=== PATIENT | male | born 1945 | race Caucasian/White ===

== ENCOUNTER 2023-11-30 08:58 | Inpatient (IN) | payer MEDICARE, SELFPAY ==
[2023-11-30] VITALS (31 sets, daily range): BP systolic 97–134; BP diastolic 62–82; PULSE 72–90; RESP 9–18; TEMP 36.1–36.5; O2SAT 96–100; BMI 18.4
--- NOTE | ~2023-11-30 | XR_ITS ---
XR chest 1V portable 11/30/2023 09:58 Indication: Altered mental status Procedure: AP portable chest Comparison: No prior studies for comparison. Findings: Cardiomegaly. Pacemaker leads in expected position. There is diffuse left-sided airspace di sease, compatible with pneumonia. Small left effusion. No pneumothorax. Impression: 1: Extensive left-sided airspace disease, compatible with pneumonia. Reviewed, dictated and finalized at location A. LY MEMBER CARETAKER Impression: 1: Extensive left-sided airspace disease, compatible with pneumonia.
--- NOTE | ~2023-11-30 | US_ITS ---
US right upper quadrant INDICATION: Elevated liver enzymes PROCEDURE: Realtime right upper abdominal ultrasound. COMPARISON: No prior studies for comparison. FINDINGS: The pancreas is normal without focal mass or pancreatic ductal dilation. Liver echotexture is normal without focal mass or intrahepatic biliary dilatation. There is normal directional flow i n the portal vein. The gallbladder is normal without stones, gallbladder wall thickening or pericholecystic fluid. Comm on bile duct measures 3 mm. No sonographic Salas's sign. There is ascites in the right upper abdome n. IMPRESSION: 1: Ascites. Reviewed, dictated and finalized at location A. REPAIRER CUSTOM IMPRESSION: 1: Ascites.
--- NOTE | ~2023-11-30 | CT_ITS ---
EXAMINATION: CT chest abdomen pelvis wo con DATE: 12/01/2023 14:28 INDICATION: Pneumonia/ascites . TECHNIQUE: Computed tomography (CT) of the chest, abdomen, and pelvis was performed with 100 mL Omnip aque-350 intravenous contrast. Automated exposure control and iterative reconstruction technique were employed. The dose-length product was 668.69 mGy-cm. COMPARISON: Right upper quadrant ultrasound, same date; x-ray chest 11/30/2023. FINDINGS: Examination is limited by nonstandard oblique positioning on the scanner table and arm down positioni ng. CHEST: Thoracic aorta: No significant dilation. Mild calcification. Low-density blood pool. Lung parenchyma and airways: Minimal tree-in-bud opacities and septal lines in the right lung. More p rominent septal thickening in the left lung with geographic areas of ground glass opacity and segment al dependent consolidation. Thoracic inlet, axillae and chest wall: No thyroid or soft tissue mass. No axillary lymphadenopathy. Moderate body wall edema. Left chest pacer with leads in good position. Mediastinum: No mass or lymphadenopathy. Heart and pericardium: Normal heart size. No pericardial effusion. Coronary artery calcifications: Heavy. Pleura: Small bilateral simple pleural fluid collections. Thoracic bones: Mild height loss at T8. Mild burst fracture at T11, no retropulsion. Mild anterior we dge deformity at T12. ABDOMEN/PELVIS: Liver: Normal. Biliary/Gallbladder: Gallbladder is contracted. No bile duct dilation. Pancreas: No mass or duct dilation. Spleen: Normal. Adrenals:No mass. Kidneys: No suspicious mass, obstructing stone, or hydronephrosis. GI tract: No small bowel dilation. Rectum is dilated to 8.1 cm by partially formed stool. The appendi x is not confidently visualized. Mesentery/Peritoneum: Moderate diffuse mesenteric edema. Small volume perihepatic fluid. No definite mesenteric mass. No free air. Retroperitoneum: No mass Pelvis: Partially distended urinary bladder with moderate wall thickening. Soft Tissues: Moderate diffuse subcutaneous edema. Abdominopelvic bones: No definite acute osseous finding in the abdomen/pelvis. Superior endplate def ormity. Mild anterior wedge deformity at L1 and L2. Partially visualized left proximal femoral hardwa re. IMPRESSION: Pulmonary opacities may represent atypical/viral infection in the left lung overlying mild edema, gerson juana asymmetric pulmonary edema. Small bilateral pleural effusions. Decreased blood pool density as can be seen with anemia. Small volume perihepatic fluid. Moderate diffuse subcutaneous and mesenteric edema. Possible fecal impaction. Cystitis versus bladder wall thickening from incomplete distention. Mild height loss at T8. Mild burst fracture without retropulsion at T11. Multilevel mild anterior wed ge deformities at the thoracolumbar junction. These changes are presumably chronic, unless accompanie d by acute pain/tenderness. Reviewed, dictated and finalized at location K. CAL I D SALES IMPRESSION: Pulmonary opacities may represent atypical/viral infection in the left lung ove rlying mild edema, versus asymmetric pulmonary edema. Small bilateral pleural effusions. Decreased blood pool density as can be seen with anemia. Small volume perihepatic fluid. Moderate diffuse subcutaneous and mesenteric ed margarita. Possible fecal impaction. Cystitis versus bladder wall thickening from incomplete distention. Mild height loss at T8. Mild burst fracture without retropulsion at T11. Multil evel mild anterior wedge deformities at the thoracolumbar junction. These salas es are presumably chronic, unless accompanied by acute pain/tenderness.
--- NOTE | ~2023-11-30 | CT_ITS ---
EXAMINATION: CT brain wo con DATE: 11/30/2023 09:56 INDICATION: Altered mental status TECHNIQUE: Computed tomography (CT) of the head was performed without intravenous contrast. The dose- length product was 681.00 mGy-cm. Automated exposure control and iterative reconstruction technique w ere employed. COMPARISON: None FINDINGS: Generalized atrophy. There are scattered mild periventricular and subcortical white matter changes, most likely related to small vessel ischemic disease (microangiopathy). There is intracrania l atherosclerosis. No depressed skull fractures. No acute intracranial hemorrhage, infarction, mass o r mass effect. Paranasal sinuses and mastoids are pneumatized. IMPRESSION: 1. No acute intracranial abnormality. Reviewed, dictated and finalized at location A. UTER TERMINAL OPERATOR
--- NOTE | 2023-11-30 09:08 | ECG_ITS ---
Measurements Intervals [place] Rate: 90 P: -79 MA: 227 QRS: -76 QRSD: 177 T: 94 QT: 441 QTc: 542 Interpretive Statements ELECTRONIC ATRIAL PACEMAKER ELECTRONIC VENTRICULAR PACEMAKER NO FURTHER INTERPRETATION POSSIBLE NO PREVIOUS ECG AVAILABLE FOR COMPARISON Electronically Signed On 11-30-2023 14:44:52 WIRE SAW OPERATOR by Jae Castillo M.D.
--- NOTE | 2023-11-30 09:30 | ED.AMS ---
HPI - Altered Mental Status General Chief Complaint: Altered Mental Status <Marcela Wells PA-C - Last Filed: 11/30/23 12:43> Stated Complaint: responsive to pain only <Marcela Wells PA-C - Last Filed: 11/30/23 12:43> Time Seen by Provider: 11/30/23 09:06 <Marcela Wells PA-C - Last Filed: 11/30/23 12:43> Source: EMS <Marcela Wells PA-C - Last Filed: 11/30/23 12:43> Mode of arrival: EMS <Marcela Wells PA-C - Last Filed: 11/30/23 12:43> Limitations: altered mental status <Marcela Wells PA-C - Last Filed: 11/30/23 12:43> History of Present Illness HPI narrative: This is a 78-year-old male that presents to the emergency department for altered mental status. Reportedly patient was woke up around 7 this morning and was found to be altered. His blood sugar was in the 20s. They did give him glucagon and it corrected patient his hypoglycemia, but patient continues to be altered. <Marcela Wells PA-C - Last Filed: 11/30/23 12:43> Related Data Allergies/Adverse Reactions: Allergies Allergy/AdvReac Type Severity Reaction Status Date / Time alendronate sodium Allergy Unknown Verified 11/30/23 10:20 [From Fosamax] gluten Allergy Unknown Verified 11/30/23 10:20 <Marcela Wells PA-C - Last Filed: 11/30/23 12:43> Review of Systems Review of Systems: ROS unobtainable: Yes unobtainable due to mental status <Marcela Wells PA-C - Last Filed: 11/30/23 12:43> [facility] Past Medical History Medical History: Medical History (Updated 11/30/23 @ 12:40 by Marcela Wells PA-C) History of chronic kidney disease History of diabetes mellitus History of gastroesophageal reflux (GERD) History of hypertension History of hypothyroidism History of pacemaker History of peripheral vascular disease History of poliomyelitis <Marcela Wells PA-C - Last Filed: 11/30/23 12:43> Social History Social History: Social History (Updated 11/30/23 @ 09:42 by Marcela Wells PA-C) Living arrangements: [facility] <Marcela Wells PA-C - Last Filed: 11/30/23 12:43> Exam Narrative: GENERAL: Lethargic, thin HEAD: Normocephalic, atraumatic. EYES: PERRLA ENT: Nares clear, no rhinorrhea or epistaxis. Mucous membranes moist. Oropharynx without tonsillar hypertrophy exudate or other lesions. Bilateral TMs pearly angel non-bulging NECK: Supple. No adenopathy or masses. CHEST: Clear to auscultation. No respiratory distress. No wheezes rales or rhonchi HEART: Regular rate and rhythm. No murmur heard. Normal peripheral pulses. ABDOMEN: Soft, nontender, nondistended, normal active bowel sounds. BACK: Superficial pressure ulcer to the sacrum with mild surrounding redness EXTREMITIES: Normal range of motion. No edema. Ulcerating wound present to the right heel with mild surrounding redness SKIN: Warm, dry, no rash. NEURO: Lethargic, does not follow commands <Marcela Wells PA-C - Last Filed: 11/30/23 12:43> Course Course Emergency Course: Patient is now more alert. Was able to tell us his name and date of <Marcela Wells PA-C - Last Filed: 11/30/23 12:43> INTERACTIVE WEB DEVELOPER/PA Physician Supervision For this patient encounter, I reviewed the INTERACTIVE WEB DEVELOPER or PA documentation, treatment plan, and medical decision making; and I had [id number] time with this patient. <Kenton Damon MD - Last Filed: 11/30/23 19:05> Consultations Consultation #1: Spoke with hospitalist about patient and workup who accepts admission <Marcela Wells PA-C - Last Filed: 11/30/23 12:43> Date: 11/30/23 <Marcela Wells PA-C - Last Filed: 11/30/23 12:43> Vital Signs Vital signs: Vital Signs Temperature 97.7 F 11/30/23 09:10 Pulse Rate 87 11/30/23 09:10 Respiratory Rate 16 11/30/23 09:10 Blood Pressure 128/82 11/30/23 09:10 Pulse Oximetry 100 11/30/23 09:10 Temperature 97.7 F 11/30/23 09:10 Pulse Rate 75 11/30/23 14:46 Respiratory Rate 15
[2023-11-30 09:46] LABS: Basophils Percent Auto 0.4 % (0.2-1.2); Eosinophils Percent Auto 0.3 % (0-4.4); Hematocrit 33.9 % (42.0-52.0); Hemoglobin 11.3 g/dL (14.0-18.0); Immature Granulocyte Absolute 0.04 K/mm3 (0.00-0.031); Immature Granulocyte Percent A 0.4 % (0-0.5); Lymphocytes Absolute Auto 0.75 K/mm3 (0.9-3.2); Lymphocytes Percent Auto 8.4 % (18.3-44.2); Mean Corpuscular HGB Conc 33.3 g/dl (32-36); Mean Corpuscular Hemoglobin 33.9 pg (26-34); Mean Corpuscular Volume 101.8 fl (80-100); Mean Platelet Volume 9.9 fl (7.4-10.4); Monocytes Absolute Auto 0.6 K/mm3 (0.1-0.6); Neutrophils Absolute Auto 7.5 K/mm3 (1.3-6.7); Neutrophils Percent Auto 83.5 % (45.5-73.1); Platelet Count Result 185 k/mm3 (150-375); Red Blood Count 3.33 M/mm3 (4.6-6.20); Red Cell Distribution Width 15.4 % (11.5-14.5)
[2023-11-30 09:59] LABS: Alanine Aminotransferase 90 U/L (6-50); Albumin Level 3.3 g/dL (3.5-5.1); Alkaline Phosphatase 150 U/L (38-126); Anion Gap 5 mmol/L (8-16); Aspartate Amino Transferase 108 U/L (17-59); Bilirubin,Total 0.9 mg/dL (0.2-1.3); Blood Urea Nitrogen 35 mg/dL (9-20); Calcium 8.4 mg/dL (8.4-10.2); Carbon Dioxide 31 mmol/L (22-30); Chloride 94 mmol/L (98-107); Estimated CRCL calculation 52 ml/min; Estimated Glomerular Filt Rate > 60; Glucose 114 mg/dL (65-110); Potassium 3.9 mmol/L (3.4-5.0); Sodium 130 mmol/L (137-145)
[2023-11-30 11:00] LABS: Lactic Acid Reflex 1.5 mmol/L (0.7-2.0)
[2023-11-30 11:01] LABS: Lipase 34 U/L (23-300)
[2023-11-30 11:05] LABS: Appearance Urine Clear (Clear); Bilirubin Urine Negative (Negative); Blood Urine Negative (Negative); Color Urine Yellow (Yellow); Glucose Urine UA Negative (Negative); Ketones Urine Negative (Negative); Leukocyte Esterase Ur Negative LEU/UL (Negative); Nitrate Urine Negative (Negative); Protein Urine Negative (Negative); Specific Grav Ur 1.016 (1.001-1.035); pH Urine 7.5 (5.0-9.0)
[2023-11-30 11:10] LABS: INR 1.3; Partial Thromboplastin Time 35.4 SECONDS (22.3-36.8); Prothrombin Time 16.6 Seconds (11.1-14.7)
[2023-11-30 11:15] LABS: Add Urine Microscopic? NO
[2023-11-30 11:36] LABS: Influenza A QL RT-PCR Negative (Negative); Influenza B QL RT-PCR Negative (Negative); RSV RNA, RT-PCR Negative (Negative); SARS-CoV-2 RNA PCR Negative (Negative)
[2023-11-30] MEDS: SODIUM CHLORIDE 0.9% IV 500 ML 999 ML IV CONT (11:52)
[2023-11-30 12:03] LABS: Glucose Point of Care 86 mg/dl (65-105)
[2023-11-30] MEDS: AZITHROMYCIN 500 MG/NS 250 ML 500 MG/250 ML BAG 250 MG IVPB (12:16)
[2023-11-30 12:53] LABS: Glucose Point of Care 73 mg/dl (65-105)
[2023-11-30] MEDS: DEXTROSE 50% 25 GM/50 ML SYRINGE IV PUSH (13:58)
[2023-11-30 14:04] LABS: Glucose Point of Care 58 mg/dl (65-105)
[2023-11-30 14:28] LABS: Glucose Point of Care 122 mg/dl (65-105)
--- NOTE | 2023-11-30 15:03 | PM.IMHP ---
H&P: HPI History of Present Illness Date/Time: 11/30/23 15:03 Chief Complaint: Altered mental status Narrative: This is a 78-year-old male that presents to the emergency department for altered mental status.? Reportedly patient was woke up around 7 this morning and was found to be altered.? His blood sugar was in the 20s.? They did give him glucagon and it corrected patient his hypoglycemia, but patient continues to be altered. And was sent to the ER for evaluation. Blood sugar was elevated when he reached the ER. She was initially only responsive to painful stimuli however discontinued improved throughout the ER stay. CT head was negative for any acute findings UA without any evidence of infection. No leukocytosis. Mildly anemic with hemoglobin of 11.3. Chest x-ray showed left-sided pneumonia. IV antibiotic has been started. Admitted for further treatment. Review of Systems Review of Systems: - CONSTITUTIONAL: Denies weight loss, fever and chills. - HEENT: Denies changes in vision and hearing - RESPIRATORY: Denies SOB and cough. - CV: Denies palpitations and CP. - GI: Denies abdominal pain, nausea, vomiting and diarrhea. - : Denies dysuria and urinary frequency. - MSK: Denies myalgia and joint pain. - SKIN: Denies rash and pruritus. - NEUROLOGICAL: Denies headache and syncope. - PSYCHIATRIC: Denies recent changes in mood. Denies anxiety and depression. [facility] Past Medical History Medical History (Updated 11/30/23 @ 12:40 by Marcela Wells PA-C) History of chronic kidney disease History of diabetes mellitus History of gastroesophageal reflux (GERD) History of hypertension History of hypothyroidism History of pacemaker History of peripheral vascular disease History of poliomyelitis Social History Social History (Updated 11/30/23 @ 09:42 by Marcela Wells PA-C) Living arrangements: retirement Meds Home Medications and Allergies Allergies Allergy/AdvReac Type Severity Reaction Status Date / Time alendronate sodium Allergy Unknown Verified 11/30/23 10:20 [From Fosamax] gluten Allergy Unknown Verified 11/30/23 10:20 Vital Signs Vital Signs - 24 hr 11/30/23 09:10 Temperature 97.7 F Pulse Rate 87 Respiratory Rate 16 Blood Pressure 128/82 Pulse Oximetry 100 Exam Narrative: GENERAL: Tired looking, thin built, fused follows commands HEAD: Normocephalic, atraumatic. EYES: PERRLA ENT: Nares clear, no rhinorrhea or epistaxis. Mucous membranes moist. NECK: Supple. No adenopathy or masses. CHEST: Clear to auscultation. No respiratory distress. No wheezes rales or rhonchi HEART: Regular rate and rhythm. No murmur heard. Normal peripheral pulses. ABDOMEN: Soft, nontender, nondistended, normal active bowel sounds. BACK: Superficial pressure ulcer to the sacrum with mild surrounding redness EXTREMITIES: Normal range of motion. No edema. Ulcerating wound present to the right heel with mild surrounding redness SKIN: Warm, dry, no rash. NEURO: Tired looking awake and following commands oriented to self but not to time or place H&P: Results Labs Labs: Short CBC 11/30/23 Range/Units 09:34 WBC 9.0 (4.5-10.0) K/mm3 Hgb 11.3 L (14.0-18.0) g/dL Hct 33.9 L (42.0-52.0) % Plt Count 185 (150-375) k/mm3 BMP 11/30/23 09:34 Sodium 130 L Potassium 3.9 Chloride 94 L Carbon Dioxide 31 H BUN 35 H Creatinine 1.00 Glucose 114 H Calcium 8.4 Liver Function 11/30/23 Range/Units 09:34 Total Bilirubin 0.9 (0.2-1.3) mg/dL AST 108 H (17-59) U/L ALT 90 H (6-50) U/L Alkaline Phosphatase 150 H (38-126) U/L Albumin 3.3 L (3.5-5.1) g/dL Urine 11/30/23 Range/Units 10:38 Urine Color Yellow (Yellow) Urine Appearance Clear (Clear) Urine pH 7.5 (5.0-9.0) Ur Specific [place] 1.016 (1.001-1.035) Urine Protein Negative (Negative) mg/dL Urine Glucose (UA) Negative (Negative) mg/dL [place]
[2023-11-30 16:08] LABS: Glucose Point of Care 73 mg/dl (65-105)
[2023-11-30] MEDS: DEXTROSE 5% 1,000 ML 1,000 ML 100 ML IVPB (16:13)
[2023-11-30 17:13] LABS: Glucose Point of Care 87 mg/dl (65-105)
[2023-11-30 17:35] LABS: Hemoglobin A1C 8.5 % (<5.7)
[2023-11-30 18:06] LABS: Hepatitis B Surface Antigen Negative (Negative)
[2023-11-30 18:12] LABS: HAV RESULT Negative (Negative); Hepatitis B Core IgM Result Negative (Negative)
[2023-11-30 18:24] LABS: Hepatitis C Virus Antibody Negative (Negative)
--- NOTE | 2023-11-30 19:29 | PC.NURSE ---
Report received from AV Braga. Assumed care of patient at this time.
[2023-11-30 19:40] LABS: Glucose Point of Care 91 mg/dl (65-105)
[2023-11-30 20:05] LABS: Glucose Point of Care 114 mg/dl (65-105)
[2023-11-30 21:25] LABS: Glucose Point of Care 108 mg/dl (65-105)
--- NOTE | 2023-11-30 22:14 | ADMGEN ---
This patient, Sukhjinder Hinton, was admitted to IMU Room 202-01. Patient/family oriented to hospital policies and general routines including ID bracelet, bed and alarms, visiting hours, pain management, procedures, bathroom and other care routines, personal items, smoking policy, room service/diet, and visiting hours. Information on how to activate the Rapid Response Team has been discussed. Patient/Family are encouraged to report perceived risks to care and to ask questions if they do not understand what they are told or what they should do.
[2023-11-30 22:18] LABS: Glucose Point of Care 107 mg/dl (65-105)
[2023-11-30] MEDS: SODIUM CHLORIDE 0.9% IV 1,000 ML 100 ML IV CONT (23:59)
[2023-12-01] VITALS (14 sets, daily range): BP systolic 85–136; BP diastolic 38–68; PULSE 70–81; RESP 16–22; TEMP 36.2–36.7; O2SAT 95–100
[2023-12-01 00:09] LABS: Glucose Point of Care 140 mg/dl (65-105)
[2023-12-01 04:26] LABS: Basophils Percent Auto 0.6 % (0.2-1.2); Eosinophils Percent Auto 0.6 % (0-4.4); Hematocrit 32.1 % (42.0-52.0); Hemoglobin 10.4 g/dL (14.0-18.0); Immature Granulocyte Absolute 0.02 K/mm3 (0.00-0.031); Immature Granulocyte Percent A 0.4 % (0-0.5); Lymphocytes Absolute Auto 0.94 K/mm3 (0.9-3.2); Lymphocytes Percent Auto 17.5 % (18.3-44.2); Mean Corpuscular HGB Conc 32.4 g/dl (32-36); Mean Corpuscular Hemoglobin 32.8 pg (26-34); Mean Corpuscular Volume 101.3 fl (80-100); Mean Platelet Volume 10.3 fl (7.4-10.4); Monocytes Absolute Auto 0.5 K/mm3 (0.1-0.6); Monocytes Percent Auto 8.4 % (2.6-8.5); Neutrophils Absolute Auto 3.9 K/mm3 (1.3-6.7); Neutrophils Percent Auto 72.5 % (45.5-73.1); Platelet Count Result 174 k/mm3 (150-375); Red Blood Count 3.17 M/mm3 (4.6-6.20); Red Cell Distribution Width 15.3 % (11.5-14.5); White Blood Count 5.4 K/mm3 (4.5-10.0)
[2023-12-01 04:51] LABS: Alanine Aminotransferase 76 U/L (6-50); Albumin Level 3.1 g/dL (3.5-5.1); Alkaline Phosphatase 138 U/L (38-126); Anion Gap 1 mmol/L (8-16); Aspartate Amino Transferase 79 U/L (17-59); Bilirubin,Total 0.9 mg/dL (0.2-1.3); Blood Urea Nitrogen 26 mg/dL (9-20); Calcium 8.2 mg/dL (8.4-10.2); Carbon Dioxide 31 mmol/L (22-30); Chloride 97 mmol/L (98-107); Estimated CRCL calculation 45 ml/min; Estimated Glomerular Filt Rate > 60; Glucose 92 mg/dL (65-110); Potassium 3.8 mmol/L (3.4-5.0); Sodium 129 mmol/L (137-145)
[2023-12-01 08:05] LABS: Glucose Point of Care 60 mg/dl (65-105)
[2023-12-01] MEDS: SODIUM CHLORIDE 0.9% IV 1,000 ML 100 ML IV CONT (09:57)
--- NOTE | 2023-12-01 12:28 | PM.IMPN ---
Progress Note: A&P Assessment and Plan (1) Hypoglycemia: Code(s): E16.2 - Hypoglycemia, unspecified Status: Acute (2) Pneumonia: Qualifiers: Laterality: left Lung location: unspecified part of lung Pneumonia type: due to unspecified organism Qualified Code(s): J18.9 - Pneumonia, unspecified organism Code(s): J18.9 - Pneumonia, unspecified organism Status: Acute Plan This is a 78-year-old male that presents to the emergency department for altered mental status.? Reportedly patient was woke up around 7 this morning and was found to be altered.? His blood sugar was in the 20s.? They did give him glucagon and it corrected patient his hypoglycemia, but patient continues to be altered. And was sent to the ER for evaluation. Blood sugar was elevated when he reached the ER. She was initially only responsive to painful stimuli however discontinued improved throughout the ER stay. CT head was negative for any acute findings UA without any evidence of infection. No leukocytosis. Mildly anemic with hemoglobin of 11.3. Chest x-ray showed left-sided pneumonia. IV antibiotic has been started. Continue IV ceftriaxone and azithromycin. Follow blood culture. DVT prophylaxis with Lovenox and SCD elevated liver enzymes check ultrasound. Start gentle IV hydration. Will switch to D5 half-normal saline at 50 cc an hour. Speech to see. Right upper quadrant ultrasound showed some ascites. Will check CT chest abdomen pelvis to further evaluate Status post pacemaker implant Type 1 diabetes on insulin pump which has been removed. Not currently available. Will continue to monitor blood sugar. A1c at 8.5. Reports he has type 1 Hypertension Hyperlipidemia Hypothyroidism Peripheral vascular disease History of poliomyelitis GERD CKD History of cardiorenal syndrome with volume overload History of GI bleed 10/2022 Celiac disease Atrial fibrillation on chronic on Peripheral arterial disease Diabetic retinopathy History of ventricular tachycardia Subjective Date/time seen: 12/01/23 12:28 Interval history: No overnight events. More awake her still confused. Intermittent hypoglycemia persist Review of Systems Review of Systems: All systems reviewed & are unremarkable except as noted in HPI and below Exam Narrative: GENERAL: Tired looking, thin built, confused follows commands bit more awake today HEAD: Normocephalic, atraumatic. EYES: PERRLA ENT: Nares clear, no rhinorrhea or epistaxis. Mucous membranes moist. NECK: Supple. No adenopathy or masses. CHEST: Clear to auscultation. No respiratory distress. No wheezes rales or rhonchi HEART: Regular rate and rhythm. No murmur heard. Normal peripheral pulses. ABDOMEN: Soft, nontender, nondistended, normal active bowel sounds. BACK: Superficial pressure ulcer to the sacrum with mild surrounding redness EXTREMITIES: Normal range of motion. No edema. Ulcerating wound present to the right heel with mild surrounding redness SKIN: Warm, dry, no rash. NEURO: Tired looking awake and following commands oriented to self but not to time or place Objective Data Vital Signs Vital Signs: Vital Signs - 24 hr 11/30/23 12:46 11/30/23 13:01 11/30/23 13:16 Temperature Pulse Rate 76 79 76 Respiratory Rate 16 14 15 Blood Pressure 116/62 102/72 97/62 L Pulse Oximetry 98 99 99 Oxygen Delivery 11/30/23 13:31 11/30/23 13:46 11/30/23 14:01 Temperature Pulse Rate 78 90 79 Respiratory Rate 14 13 16 Blood Pressure 101/77 116/76 124/72 Pulse Oximetry 98 98 100 Oxygen Delivery 11/30/23 14:16 11/30/23 14:46 11/30/23 19:29 Temperature Pulse Rate 76 75 76 Respiratory Rate 9 L 15 14 Blood Pressure 119/71 129/71 122/73 Pulse Oximetry 99 100 97 Oxygen Delivery 11/30/23 19:04 11/30/23 19:15 11/30/23 19:16 Temperature Pulse Rate 73 77 79 Respiratory Rate 15 17 15 Blood Pressure 122/73 Pulse Oximetry Oxygen Delivery
[2023-12-01 12:40] LABS: Glucose Point of Care 60 mg/dl (65-105)
[2023-12-01] MEDS: DEXTROSE 5%/0.45% SOD CHL 1,000 ML 50 ML IV CONT (15:33)
[2023-12-01] MEDS: AZITHROMYCIN 500 MG/NS 250 ML 500 MG/250 ML BAG 250 MG IVPB (15:33)
[2023-12-01 16:20] LABS: Glucose Point of Care 47 mg/dl (65-105)
[2023-12-01 16:53] LABS: Glucose Point of Care 54 mg/dl (65-105)
[2023-12-01] MEDS: CHOLECALCIFEROL 1,000 UNITS TABLET 2000 UNITS PO (17:03)
[2023-12-01] MEDS: DEXTROSE 50% 25 GM/50 ML SYRINGE IV PUSH (17:03)
[2023-12-01] MEDS: APIXABAN 5 MG TABLET PO (17:03)
[2023-12-01 17:41] LABS: Glucose Point of Care 170 mg/dl (65-105)
[2023-12-01 18:33] LABS: Glucose Point of Care 188 mg/dl (65-105)
--- NOTE | 2023-12-01 18:40 | PC.NURSE ---
This patient, Sukhjinder Hinton, was received from [[id number] ] on 12/01/23 at 1840. Patient/family oriented to unit policies and routines
--- NOTE | 2023-12-01 18:55 | PC.NURSE ---
This patient, Sukhjinder Hinton, was transferred to [facility] on 12/01/23 at 1840. Personal belongings sent with patient. Report given to Andressa LEY. Appropriate documentation sent with patient.
[2023-12-01 19:09] LABS: Glucose Point of Care 184 mg/dl (65-105)
[2023-12-01 20:13] LABS: Glucose Point of Care 253 mg/dl (65-105)
[2023-12-01] MEDS: FAMOTIDINE 20 MG TABLET PO (20:25)
[2023-12-01] MEDS: INSULIN GLARGINE (*BKC) 100 UNITS/ML SUB-Q (20:26)
[2023-12-01] MEDS: DICLOFENAC SODIUM 1% 100 GM GEL (*BKC) 1 APPLIC TOPICAL (20:27)
[2023-12-02] VITALS (7 sets, daily range): BP systolic 80–124; BP diastolic 42–70; PULSE 72–80; RESP 14–17; TEMP 36.2–37; O2SAT 96–100; BMI 18.8
[2023-12-02 00:10] LABS: Glucose Point of Care 250 mg/dl (65-105)
[2023-12-02 03:56] LABS: Glucose Point of Care 190 mg/dl (65-105)
[2023-12-02 05:16] LABS: Basophils Percent Auto 0.4 % (0.2-1.2); Eosinophils Percent Auto 0.8 % (0-4.4); Hematocrit 31.7 % (42.0-52.0); Hemoglobin 10.4 g/dL (14.0-18.0); Immature Granulocyte Absolute 0.02 K/mm3 (0.00-0.031); Immature Granulocyte Percent A 0.4 % (0-0.5); Lymphocytes Absolute Auto 0.93 K/mm3 (0.9-3.2); Mean Corpuscular HGB Conc 32.8 g/dl (32-36); Mean Corpuscular Hemoglobin 33.8 pg (26-34); Mean Corpuscular Volume 102.9 fl (80-100); Mean Platelet Volume 10.2 fl (7.4-10.4); Monocytes Absolute Auto 0.7 K/mm3 (0.1-0.6); Monocytes Percent Auto 14.3 % (2.6-8.5); Neutrophils Absolute Auto 3.2 K/mm3 (1.3-6.7); Neutrophils Percent Auto 65.1 % (45.5-73.1); Platelet Count Result 157 k/mm3 (150-375); Red Blood Count 3.08 M/mm3 (4.6-6.20); Red Cell Distribution Width 15.7 % (11.5-14.5); White Blood Count 4.9 K/mm3 (4.5-10.0)
[2023-12-02] MEDS: DEXTROSE 5%/0.45% SOD CHL 1,000 ML 50 ML IV CONT (05:16)
[2023-12-02 05:33] LABS: Alanine Aminotransferase 58 U/L (6-50); Albumin Level 2.7 g/dL (3.5-5.1); Alkaline Phosphatase 124 U/L (38-126); Anion Gap 3 mmol/L (8-16); Aspartate Amino Transferase 61 U/L (17-59); Bilirubin,Total 0.7 mg/dL (0.2-1.3); Blood Urea Nitrogen 22 mg/dL (9-20); Calcium 7.9 mg/dL (8.4-10.2); Carbon Dioxide 26 mmol/L (22-30); Chloride 99 mmol/L (98-107); Estimated CRCL calculation 45 ml/min; Estimated Glomerular Filt Rate > 60; Glucose 161 mg/dL (65-110); Magnesium 1.9 mg/dL (1.6-2.3); Potassium 3.7 mmol/L (3.4-5.0); Sodium 128 mmol/L (137-145)
[2023-12-02] MEDS: LEVOTHYROXINE SODIUM 125 MCG TABLET PO (07:47)
[2023-12-02] MEDS: CHOLECALCIFEROL 1,000 UNITS TABLET 2000 UNITS PO ×2 (07:47→16:15)
[2023-12-02] MEDS: METOPROLOL SUCCINATE EXT REL 50 MG TABCR PO ×2 (07:47→16:15)
[2023-12-02] MEDS: CALCIUM CARBONATE (TUMS) 500 MG (200 MG ELEMENTAL) PO (07:47)
[2023-12-02] MEDS: APIXABAN 5 MG TABLET PO ×2 (07:47→16:15)
[2023-12-02] MEDS: THERAPEUTIC MULTIVITAMINS/MINERALS TAB (*BKC) 1 TABLET PO (07:47)
[2023-12-02] MEDS: COLLAGENASE OINT 30 GM TUBE 1 APPLIC TOPICAL (07:49)
[2023-12-02 08:03] LABS: Glucose Point of Care 130 mg/dl (65-105)
--- NOTE | 2023-12-02 10:40 | PCCDE ---
Addendum entered by Eden García RD, LDN, CDE 12/02/23 10:54: mealtime dosing based on home medication cfm'd 11/30/23 of Novolog 5 U TIDwmeals. Original Note: 12/02/23 10:05 am Received notification home insulin pump, pt presented from half-way, insulin pump removed, admitted altered mental status, hypoglycemia (at home), presents with pneumonia, mild macrocytic anemia. H/O IDDM, Celiac Dz, CKD, GERD, HTN, PVD, poliomyelitis. Per conversation with Andressa LEY, he is not alert/oriented for conversation with CDCES. Per chart: 25% of this am B - When he consumes >50% of meal, consider adding Novolog 2 U TIDWmeals to start in addition to the Lantus based on BGs. FJ
[2023-12-02] MEDS: AZITHROMYCIN 500 MG/NS 250 ML 500 MG/250 ML BAG 250 MG IVPB (11:03)
--- NOTE | 2023-12-02 11:54 | PM.IMPN ---
Progress Note: A&P Assessment and Plan (1) Hypoglycemia: Code(s): E16.2 - Hypoglycemia, unspecified Status: Acute (2) Pneumonia: Qualifiers: Laterality: left Lung location: unspecified part of lung Pneumonia type: due to unspecified organism Qualified Code(s): J18.9 - Pneumonia, unspecified organism Code(s): J18.9 - Pneumonia, unspecified organism Status: Acute Plan This is a 78-year-old male that presents to the emergency department for altered mental status.? Reportedly patient was woke up around 7 this morning and was found to be altered.? His blood sugar was in the 20s.? They did give him glucagon and it corrected patient his hypoglycemia, but patient continues to be altered. And was sent to the ER for evaluation. Blood sugar was elevated when he reached the ER. She was initially only responsive to painful stimuli however discontinued improved throughout the ER stay. CT head was negative for any acute findings UA without any evidence of infection. No leukocytosis. Mildly anemic with hemoglobin of 11.3. Chest x-ray showed left-sided pneumonia. IV antibiotic has been started. Continue IV ceftriaxone and azithromycin. Blood culture remains negative to date dVT prophylaxis with Lovenox and SCD elevated liver enzymes check ultrasound. Ultrasound with mild perihepatic ascites. Speech to see. Right upper quadrant ultrasound showed some ascites. Chest CT abdomen pelvis with pulmonary opacities may represent atypical/viral infection left lung overlying mild edema versus asymmetric pulmonary edema. Small bilateral pleural effusion with mesenteric edema and moderate diffuse subcutaneous fluid. Status post pacemaker implant Type 1 diabetes on insulin pump which has been removed. Not currently available. Will continue to monitor blood sugar. A1c at 8.5. Reports he has type 1. Switch to Lantus and started small dose of 5 units. Monitor for hypoglycemia. Hypertension Hyperlipidemia Hypothyroidism Peripheral vascular disease History of poliomyelitis GERD CKD History of cardiorenal syndrome with volume overload History of GI bleed 10/2022 Celiac disease Atrial fibrillation on chronic on Peripheral arterial disease Diabetic retinopathy History of ventricular tachycardia Subjective Date/time seen: 12/02/23 11:54 Interval history: No overnight events. Is more alert. No symptoms reported. Blood sugar trended up overnight received Lantus. Review of Systems Review of Systems: All systems reviewed & are unremarkable except as noted in HPI and below Exam Narrative: GENERAL: Tired looking, thin built, more alert and conversant HEAD: Normocephalic, atraumatic. EYES: PERRLA ENT: Nares clear, no rhinorrhea or epistaxis. Mucous membranes moist. NECK: Supple. No adenopathy or masses. CHEST: Clear to auscultation. No respiratory distress. No wheezes rales or rhonchi HEART: Regular rate and rhythm. No murmur heard. Normal peripheral pulses. ABDOMEN: Soft, nontender, nondistended, normal active bowel sounds. BACK: Superficial pressure ulcer to the sacrum with mild surrounding redness EXTREMITIES: Normal range of motion. No edema. Ulcerating wound present to the right heel with mild surrounding redness SKIN: Warm, dry, no rash. NEURO: More awake and following commands oriented to self and place not to time Objective Data Vital Signs Vital Signs: Vital Signs - 24 hr 12/01/23 12:07 12/01/23 16:05 12/01/23 16:55 Temperature 97.1 F L 97.7 F Pulse Rate 71 75 Respiratory Rate 20 20 Blood Pressure 104/48 L 85/38 L 101/60 Pulse Oximetry 100 99 Oxygen Delivery 12/01/23 20:00 12/01/23 20:20 12/01/23 23:26 Temperature 97.8 F 98.0 F Pulse Rate 79 80 Respiratory Rate 18 18 Blood Pressure 112/56 L 105/53 L Pulse Oximetry 98 98 Oxygen Delivery Room Air 12/02/23 03:58 12/02/23 08:08 12/02/23 08:00 Temperature 98.6 F 98.3 F Pulse Rate 79 80 Respiratory Rate 17 1
--- NOTE | 2023-12-02 12:14 | PCSTNOTE ---
Please refer to the Bedside Swallow Evaluation in the EMR. Please note, silent aspiration cannot be ruled out at bedside.
[2023-12-02 12:16] LABS: Glucose Point of Care 98 mg/dl (65-105)
[2023-12-02 17:38] LABS: Glucose Point of Care 104 mg/dl (65-105)
[2023-12-02] MEDS: ALBUMIN HUMAN 25% 25 GM/100 ML 200 ML IVPB (20:13)
--- NOTE | 2023-12-02 20:20 | PC.NURSE ---
Gisel Cesar notified pt BP 82/42 and appears lethargic, pt denies any symptoms. Order received for one time dose of albumin.
[2023-12-02 20:28] LABS: Glucose Point of Care 281 mg/dl (65-105)
[2023-12-02] MEDS: INSULIN GLARGINE (*BKC) 100 UNITS/ML SUB-Q (21:46)
[2023-12-03] VITALS (10 sets, daily range): BP systolic 90–124; BP diastolic 57–96; PULSE 72–98; RESP 12–18; TEMP 36.3–37.1; O2SAT 96–99
[2023-12-03 05:28] LABS: Eosinophils Absolute Auto 0.1 K/mm3 (0-0.3); Eosinophils Percent Auto 1.8 % (0-4.4); Hematocrit 26.6 % (42.0-52.0); Hemoglobin 8.6 g/dL (14.0-18.0); Immature Granulocyte Absolute 0.01 K/mm3 (0.00-0.031); Immature Granulocyte Percent A 0.3 % (0-0.5); Lymphocytes Absolute Auto 0.89 K/mm3 (0.9-3.2); Lymphocytes Percent Auto 22.7 % (18.3-44.2); Mean Corpuscular HGB Conc 32.3 g/dl (32-36); Mean Corpuscular Hemoglobin 33.9 pg (26-34); Mean Corpuscular Volume 104.7 fl (80-100); Mean Platelet Volume 9.9 fl (7.4-10.4); Monocytes Absolute Auto 0.5 K/mm3 (0.1-0.6); Monocytes Percent Auto 13.5 % (2.6-8.5); Neutrophils Absolute Auto 2.4 K/mm3 (1.3-6.7); Neutrophils Percent Auto 60.7 % (45.5-73.1); Platelet Count Result 118 k/mm3 (150-375); Red Blood Count 2.54 M/mm3 (4.6-6.20); Red Cell Distribution Width 15.9 % (11.5-14.5); White Blood Count 3.9 K/mm3 (4.5-10.0)
[2023-12-03 05:39] LABS: Alanine Aminotransferase 46 U/L (6-50); Albumin Level 3.1 g/dL (3.5-5.1); Alkaline Phosphatase 95 U/L (38-126); Anion Gap 6 mmol/L (8-16); Aspartate Amino Transferase 56 U/L (17-59); Bilirubin,Total 0.8 mg/dL (0.2-1.3); Blood Urea Nitrogen 25 mg/dL (9-20); Calcium 8.3 mg/dL (8.4-10.2); Carbon Dioxide 26 mmol/L (22-30); Chloride 100 mmol/L (98-107); Estimated CRCL calculation 41 ml/min; Estimated Glomerular Filt Rate > 60; Glucose 217 mg/dL (65-110); Magnesium 1.9 mg/dL (1.6-2.3); Potassium 3.8 mmol/L (3.4-5.0); Sodium 132 mmol/L (137-145)
[2023-12-03 08:05] LABS: Glucose Point of Care 163 mg/dl (65-105)
[2023-12-03] MEDS: CALCIUM CARBONATE (TUMS) 500 MG (200 MG ELEMENTAL) PO (09:06)
[2023-12-03] MEDS: COLLAGENASE OINT 30 GM TUBE 1 APPLIC TOPICAL (09:07)
[2023-12-03] MEDS: LEVOTHYROXINE SODIUM 125 MCG TABLET PO (09:07)
[2023-12-03] MEDS: APIXABAN 5 MG TABLET PO ×2 (09:07→17:55)
[2023-12-03] MEDS: CHOLECALCIFEROL 1,000 UNITS TABLET 2000 UNITS PO ×2 (09:07→17:55)
[2023-12-03] MEDS: THERAPEUTIC MULTIVITAMINS/MINERALS TAB (*BKC) 1 TABLET PO (09:08)
[2023-12-03] MEDS: DICLOFENAC SODIUM 1% 100 GM GEL (*BKC) 1 APPLIC TOPICAL ×4 (09:11→21:37)
[2023-12-03] MEDS: METOPROLOL SUCCINATE EXT REL 50 MG TABCR PO ×2 (09:13→17:57)
--- NOTE | 2023-12-03 10:12 | PCPTNOTE ---
Attempted PT evaluation, pt not alert enough to safely participate in skilled therapy this morning. RN aware. Will follow.
[2023-12-03 12:03] LABS: Glucose Point of Care 111 mg/dl (65-105)
--- NOTE | 2023-12-03 12:34 | PM.IMPN ---
Progress Note: A&P Assessment and Plan (1) Hypoglycemia: Code(s): E16.2 - Hypoglycemia, unspecified Status: Acute (2) Pneumonia: Qualifiers: Laterality: left Lung location: unspecified part of lung Pneumonia type: due to unspecified organism Qualified Code(s): J18.9 - Pneumonia, unspecified organism Code(s): J18.9 - Pneumonia, unspecified organism Status: Acute Plan This is a 78-year-old male that presents to the emergency department for altered mental status.? Reportedly patient was woke up around 7 this morning and was found to be altered.? His blood sugar was in the 20s.? They did give him glucagon and it corrected patient his hypoglycemia, but patient continues to be altered. And was sent to the ER for evaluation. Blood sugar was elevated when he reached the ER. She was initially only responsive to painful stimuli however discontinued improved throughout the ER stay. CT head was negative for any acute findings UA without any evidence of infection. No leukocytosis. Mildly anemic with hemoglobin of 11.3. Chest x-ray showed left-sided pneumonia. IV antibiotic has been started. Continue IV ceftriaxone and azithromycin. Blood culture remains negative to date. DVT prophylaxis with Lovenox and SCD elevated liver enzymes check ultrasound. Ultrasound with mild perihepatic ascites. Speech to see. Right upper quadrant ultrasound showed some ascites. Chest CT abdomen pelvis with pulmonary opacities may represent atypical/viral infection left lung overlying mild edema versus asymmetric pulmonary edema. Small bilateral pleural effusion with mesenteric edema and moderate diffuse subcutaneous fluid. Will switch antibiotic to oral. PT OT to see. Status post pacemaker implant Type 1 diabetes on insulin pump which has been removed. Not currently available. Will continue to monitor blood sugar. A1c at 8.5. Reports he has type 1. Switch to Lantus and started small dose of 5 units. Monitor for hypoglycemia. He was on Lantus 12 units b.i.d prior to admission. Slowly related just to 8 units HS had handle insulin 3 units 3 times a day Hypertension Hyperlipidemia Hypothyroidism Peripheral vascular disease History of poliomyelitis GERD CKD History of cardiorenal syndrome with volume overload History of GI bleed 10/2022 Celiac disease Atrial fibrillation on chronic on Peripheral arterial disease Diabetic retinopathy History of ventricular tachycardia Disposition: Back to nursing facility when stable anticipate 1-2 days Subjective Date/time seen: 12/03/23 12:34 Interval history: No new complaints. Lying in bed. Reported no coughing. Needs to be fed. Probably at his baseline level. Review of Systems Review of Systems: All systems reviewed & are unremarkable except as noted in HPI and below Exam Narrative: GENERAL: Tired looking, thin built, more alert and conversant HEAD: Normocephalic, atraumatic. EYES: PERRLA ENT: Nares clear, no rhinorrhea or epistaxis. Mucous membranes moist. NECK: Supple. No adenopathy or masses. CHEST: Clear to auscultation. No respiratory distress. No wheezes rales or rhonchi HEART: Regular rate and rhythm. No murmur heard. Normal peripheral pulses. ABDOMEN: Soft, nontender, nondistended, normal active bowel sounds. BACK: Superficial pressure ulcer to the sacrum with mild surrounding redness EXTREMITIES: Normal range of motion. No edema. Ulcerating wound present to the right heel with mild surrounding redness SKIN: Warm, dry, no rash. NEURO: More awake and following commands oriented to self and place not to time Objective Data Vital Signs Vital Signs: Vital Signs - 24 hr 12/02/23 12:40 12/02/23 18:04 12/02/23 20:00 Temperature 97.5 F L 97.7 F Pulse Rate 80 80 Respiratory Rate 16 14 Blood Pressure 118/70 86/48 L 80/42 L Pulse Oximetry 99 98 12/02/23 23:48 12/03/23 04:00 12/03/23 08:00 Temperature 98.1 F 98.0 F 97.6 F Pulse Rate 72 82
[2023-12-03] MEDS: INSULIN ASPART (*BKC) 100 UNITS/ML SUB-Q ×3 (13:03→17:56)
--- NOTE | 2023-12-03 14:42 | PCOTNOTE ---
Attempted OT evaluation, pt. remains not alert enough to safely participate in skilled therapy at this time RN aware. Will follow.
[2023-12-03 17:11] LABS: Glucose Point of Care 220 mg/dl (65-105)
[2023-12-03 20:45] LABS: Glucose Point of Care 87 mg/dl (65-105)
[2023-12-03] MEDS: CEFDINIR 300 MG CAPSULE PO (21:37)
[2023-12-03] MEDS: FAMOTIDINE 20 MG TABLET PO (21:37)
[2023-12-04 03:55] VITALS: BP 105/60; PULSE 81; RESP 16; TEMP 36.8; O2SAT 97
[2023-12-04 05:51] LABS: Basophils Percent Auto 0.7 % (0.2-1.2); Eosinophils Absolute Auto 0.1 K/mm3 (0-0.3); Eosinophils Percent Auto 2.6 % (0-4.4); Hematocrit 27.4 % (42.0-52.0); Immature Granulocyte Absolute 0.03 K/mm3 (0.00-0.031); Immature Granulocyte Percent A 0.7 % (0-0.5); Lymphocytes Absolute Auto 1.14 K/mm3 (0.9-3.2); Lymphocytes Percent Auto 25.1 % (18.3-44.2); Mean Corpuscular HGB Conc 32.8 g/dl (32-36); Mean Corpuscular Hemoglobin 33.6 pg (26-34); Mean Corpuscular Volume 102.2 fl (80-100); Mean Platelet Volume 9.6 fl (7.4-10.4); Monocytes Absolute Auto 0.5 K/mm3 (0.1-0.6); Monocytes Percent Auto 9.9 % (2.6-8.5); Neutrophils Absolute Auto 2.8 K/mm3 (1.3-6.7); Platelet Count Result 115 k/mm3 (150-375); Red Blood Count 2.68 M/mm3 (4.6-6.20); Red Cell Distribution Width 15.8 % (11.5-14.5); White Blood Count 4.6 K/mm3 (4.5-10.0)
[2023-12-04 06:06] LABS: Alanine Aminotransferase 50 U/L (6-50); Albumin Level 2.8 g/dL (3.5-5.1); Alkaline Phosphatase 103 U/L (38-126); Anion Gap 0 mmol/L (8-16); Aspartate Amino Transferase 59 U/L (17-59); Bilirubin,Total 0.7 mg/dL (0.2-1.3); Blood Urea Nitrogen 31 mg/dL (9-20); Calcium 8.3 mg/dL (8.4-10.2); Carbon Dioxide 31 mmol/L (22-30); Chloride 101 mmol/L (98-107); Estimated CRCL calculation 44 ml/min; Estimated Glomerular Filt Rate > 60; Glucose 94 mg/dL (65-110); Magnesium 1.9 mg/dL (1.6-2.3); Sodium 132 mmol/L (137-145)
[2023-12-04 08:00] VITALS: BP 115/74; PULSE 78; RESP 16; TEMP 36.6; O2SAT 98
[2023-12-04 08:34] LABS: Glucose Point of Care 118 mg/dl (65-105)
[2023-12-04 08:34] LABS: Folic Acid 11.7 ng/mL (2.76->20)
[2023-12-04] MEDS: CALCIUM CARBONATE (TUMS) 500 MG (200 MG ELEMENTAL) PO (09:31)
[2023-12-04 09:33] VITALS: PULSE 80
[2023-12-04] MEDS: DICLOFENAC SODIUM 1% 100 GM GEL (*BKC) 1 APPLIC TOPICAL (09:33)
[2023-12-04] MEDS: CHOLECALCIFEROL 1,000 UNITS TABLET 2000 UNITS PO (09:33)
[2023-12-04] MEDS: COLLAGENASE OINT 30 GM TUBE 1 APPLIC TOPICAL (09:33)
[2023-12-04] MEDS: LEVOTHYROXINE SODIUM 125 MCG TABLET PO (09:33)
[2023-12-04] MEDS: METOPROLOL SUCCINATE EXT REL 50 MG TABCR PO (09:33)
[2023-12-04] MEDS: CEFDINIR 300 MG CAPSULE PO (09:33)
[2023-12-04] MEDS: AZITHROMYCIN 250 MG TABLET 500 MG PO (09:34)
[2023-12-04] MEDS: APIXABAN 5 MG TABLET PO (09:34)
[2023-12-04] MEDS: THERAPEUTIC MULTIVITAMINS/MINERALS TAB (*BKC) 1 TABLET PO (09:34)
[2023-12-04] MEDS: INSULIN ASPART (*BKC) 100 UNITS/ML SUB-Q ×2 (09:35→12:57)
--- NOTE | 2023-12-04 11:57 | PM.DS ---
DS: Admitting Diagnosis Discharge Date 12/04/23 Admitting Diagnosis Altered mental status DS: Discharge Diagnosis Discharge Diagnosis (1) Hypoglycemia: Code(s): E16.2 - Hypoglycemia, unspecified Status: Acute (2) Pneumonia: Qualifiers: Laterality: left Lung location: unspecified part of lung Pneumonia type: due to unspecified organism Qualified Code(s): J18.9 - Pneumonia, unspecified organism Code(s): J18.9 - Pneumonia, unspecified organism Status: Acute (3) Diabetes mellitus: Code(s): E11.9 - Type 2 diabetes mellitus without complications Status: Acute (4) Thrombocytopenia: Code(s): D69.6 - Thrombocytopenia, unspecified Status: Acute (5) HTN (hypertension), benign: Code(s): I10 - Essential (primary) hypertension Status: Acute (6) Confusion: Code(s): R41.0 - Disorientation, unspecified Status: Acute DS: Summary Hospital Course Reason for hospitalization: 78yo male with DM and HTN here for altered mental status. Hospital Course: Reportedly patient was woke up around 7AM and was found to be altered.? His blood sugar was in the 20s.?He was given glucagon and it corrected. He was still altered and sent [facility] ED for evaluation. CT head was negative for any acute findings. UA without any evidence of infection. No leukocytosis. Anemic with hemoglobin of 11.3 but dropped to 9. Chest x-ray showed left-sided pneumonia. IV antibiotic were started. Blood culture remain negative to date. Speech therapy recommended Level 5 diet. He had elevated liver enzymes but these normalized. Hepatitis panel negative. COVID, Influenza and RSV PCR negative. Right upper quadrant ultrasound showed some ascites. CT Ch/Abd/Pel showing pulmonary opacities may represent atypical/viral infection int he left lung overlying mild edema versus asymmetric pulmonary edema. Small bilateral pleural effusion with mesenteric edema and moderate diffuse subcutaneous fluid. Possible fecal impaction. Possible cystitis but UA was clear. Patient has Type 1 diabetes on insulin pump (?) and was not currently available (but home meds listing lantus). A1c at 8.5. Switched to Lantus and meal time insulin and adjusted. The patient's blood glucose was monitored closely with [employer] covering with sliding scale. Hypoglycemia protocol was available as needed. He overall did well. His mental status returned to baseline. He was able to be discharged on 12/04/23 Status at Discharge Cognitive/behavioral status at discharge: stable Time Spent with Patient Time attestation: Total time spent providing and/or coordinating discharge services: 36 minutes Time spent: Greater than 30 minutes Exam Narrative: AF 98.0 115/74 80 16 98% ra Gen - NARD lying almost flat in bed. Chest - lungs clear anteriorly andin the flanks. nml RR. PM in the left upper chest CV - RRR S1/S2 Abd - Soft, NT/ND, Positive BS Ext - No pedal edema. Left heel covering dried eschar. Right ankle dressing clean, dry and intact Neuro - Alert and oriented x4. Psych - Nml mood and affect Skin - Warm and dry DS: Data Data Completed and Pending Labs on day of discharge: Labs from last 24 hours 12/04/23 12/04/23 12/04/23 08:31 05:36 05:35 WBC 4.6 RBC 2.68 L Hgb 9.0 L Hct 27.4 L MCV 102.2 H MCH 33.6 MCHC 32.8 RDW 15.8 H Plt Count 115 L MPV 9.6 Immature Gran % (Auto) 0.7 H Neut % (Auto) 61.0 Lymph % (Auto) 25.1 Baxter % (Auto) 9.9 H Eos % (Auto) 2.6 Baso % (Auto) 0.7 Lymph # (Auto) 1.14 Baxter # (Auto) 0.5 Eos # (Auto) 0.1 Baso # (Auto) 0.0 Abs Immat Gran (auto) 0.03 Absolute Neuts (auto) 2.8 Absolute Nucleated RBC 0.0 Nucleated RBC % 0.0 Sodium 132 L Potassium 4.0 Chloride 101 Carbon Dioxide 31 H Anion Gap 0 L BUN 31 H Creatinine 1.00 Estim Creat Clear Calc 44 Estimated GFR > 60
[2023-12-04 12:26] LABS: Glucose Point of Care 160 mg/dl (65-105)
[2023-12-04 16:00] VITALS: BP 108/64; PULSE 86; RESP 16; TEMP 36.5; O2SAT 96
[2023-12-04 17:31] LABS: Glucose Point of Care 161 mg/dl (65-105)
== END 2023-12-04 17:02 | DRG 637 ==
LOC: ANHED 12:40 → ANHIMU 12:59 → ANH2MED 12-01 18:34
PROVIDERS: Emergency Medicine; Admitting Provider Internal Medicine; Emergency Provider Physician Assistant; PCP Hospitalist; Visit Provider Internal Medicine
DX: E10.649 Type 1 diabetes mellitus with hypoglycemia without coma (principal); J18.9 Pneumonia, unspecified organism; I48.20 Chronic atrial fibrillation, unspecified; R18.8 Other ascites; D69.6 Thrombocytopenia, unspecified; R41.0 Disorientation, unspecified; I12.9 Hypertensive chronic kidney disease with stage 1 through stage 4 chronic kidney disease, or unspecified chronic kidney disease; E10.22 Type 1 diabetes mellitus with diabetic chronic kidney disease; E10.319 Type 1 diabetes mellitus with unspecified diabetic retinopathy without macular edema; N18.9 Chronic kidney disease, unspecified; K21.9 Gastro-esophageal reflux disease without esophagitis; K90.0 Celiac disease; E03.9 Hypothyroidism, unspecified; I73.9 Peripheral vascular disease, unspecified; Z20.822 Contact with and (suspected) exposure to COVID-19; D64.9 Anemia, unspecified; Z95.0 Presence of cardiac pacemaker; Z86.12 Personal history of poliomyelitis
CPT/HCPCS: 36415; 70450; 71045; 71250; 74176; 76705; 80053; 80074; 81003; 82607; 82746; 82948; 83036; 83605; 83690; 83735; 85025; 85610; 85730; 87040; 87637; 92610; 93005; 96361; 96365; 96366; 96367; 96375; 97161; 97167; 99285; A9270; G0378; J0456; J0696; J1610; J1815; J7030; J7040; J7070; P9047